=== PATIENT | female | born 1970 | race Caucasian/White ===

== ENCOUNTER 2020-02-01 12:12 | Emergency (ER) | payer BC ==
[2020-02-01] MEDS ORDERED: Morphine 4 MG/ML VIAL ONE ×2 (13:22→14:42)
[2020-02-01] MEDS ORDERED: Ketorolac Tromethamine 30 MG/ML VIAL ONE (13:23)
[2020-02-01] MEDS ORDERED: Acetaminophen 500 MG TAB ONE (13:23)
--- NOTE | 2020-02-01 14:15 | CT ---
Exam: CT cervical spine without contrast HISTORY: Trauma. Pain. COMPARISON: None FINDINGS: No craniocervical dissociation. Appropriate alignment of the lateral masses of C1 and C2. Intact odon toid process Appropriate alignment of the facets. Straightening of normal cervical lordosis may be due to patient position, muscle spasm or cervical co llar. Soft tissue neck structures: No mass, lymphadenopathy or hematoma. No prevertebral soft tissue swelli ng. Upper mediastinum and lung apices: Unremarkable Central spinal canal: No significant central canal stenosis. Mild right neural foraminal narrowing at C5-C6 due to degenerative changes. Limited evaluation due to technique Vertebral bodies: Cervical spine vertebral body height is maintained. No fracture. IMPRESSION: 1. No fracture 2. Straightening of normal cervical lordosis as described above. If there is concern for ligamentous injury, consider MRI
--- NOTE | 2020-02-01 14:54 | CT ---
CT THORACIC SPINE WITH CORONAL AND SAGITTAL REFORMATIONS CT LUMBAR SPINE WITH CORONAL AND SAGITTAL REFORMATIONS: Date: 02/01/2020 HISTORY: Fall, back pain. FINDINGS/IMPRESSION: There are degenerative changes in the thoracolumbar spine. No acute fracture or subluxation is seen. Incidental note is made of a peripheral pleural based 6 mm nodule in the superior segment of right lo wer lobe and a couple of nonobstructing 3 mm calculi in the right kidney. Dedicated CT scan of the chest on a nonemergent basis should be performed. CODE T. CODE LN. POS: [facility]
== END 2020-02-01 15:15 | disposition home or self-care (01) ==
LOC: NAV ERS 12:12
DX: M62.830 Muscle spasm of back (principal); M54.2 Cervicalgia; G89.29 Other chronic pain; E03.9 Hypothyroidism, unspecified; K21.9 Gastro-esophageal reflux disease without esophagitis; I10 Essential (primary) hypertension; M19.90 Unspecified osteoarthritis, unspecified site; J45.909 Unspecified asthma, uncomplicated; F41.9 Anxiety disorder, unspecified; Z79.51 Long term (current) use of inhaled steroids; Z79.899 Other long term (current) drug therapy; W01.0XXA Fall on same level from slipping, tripping and stumbling without subsequent striking against object, initial encounter
CPT/HCPCS: 72125; 72128; 72131; 96372; J1885; J2270

== ENCOUNTER 2020-03-09 05:43 | Emergency (ER) | payer BC | END 2020-03-09 06:27 | disposition home or self-care (01) | LOC: NAV ERS 05:43 | DX: R21 Rash and other nonspecific skin eruption (principal); E03.9 Hypothyroidism, unspecified; F41.9 Anxiety disorder, unspecified; Z79.899 Other long term (current) drug therapy | CPT/HCPCS: 99282 ==

== ENCOUNTER 2020-03-21 20:13 | Emergency (ER) | payer BC, OTHER ==
[2020-03-21] MEDS ORDERED: Doxycycline 100 MG CAP ONE (21:03)
== END 2020-03-21 22:25 | disposition home or self-care (01) ==
LOC: NAV ERS 20:13
DX: U07.1 COVID-19 (principal); L03.311 Cellulitis of abdominal wall; E03.9 Hypothyroidism, unspecified; K21.9 Gastro-esophageal reflux disease without esophagitis; I10 Essential (primary) hypertension; F41.9 Anxiety disorder, unspecified; Z79.899 Other long term (current) drug therapy
CPT/HCPCS: 99284